=== PATIENT | female | born 2005 | race Hispanic/Latino ===

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

== ENCOUNTER 2024-01-23 08:11 | Emergency (ER) | payer SELFPAY ==
[~2024-01-23] VITALS: Ht 170.2 cm; Wt 61.2 kg
[2024-01-23 08:21] VITALS: PULSE 93; RESP 18; TEMP 98; O2SAT 99
[2024-01-23] MEDS ORDERED: DEXAMETHASONE SOD PHOS INJ 4 MG/ML SDV IM ONE (10:00)
== END 2024-01-23 10:04 | disposition home or self-care (01) ==
LOC: FSED 08:15
DX: J02.9 Acute pharyngitis, unspecified (principal); F41.9 Anxiety disorder, unspecified; F90.9 Attention-deficit hyperactivity disorder, unspecified type
CPT/HCPCS: 81025; 83518; 99283; J1100